=== PATIENT | male | born 1985 | race Hispanic/Latino ===

== ENCOUNTER 2018-01-20 21:07 | Emergency (ER) | payer SELFPAY ==
[2018-01-20 21:21] VITALS: BP 151/82
[2018-01-20] MEDS ORDERED: MOTRIN ONE (21:29)
[2018-01-20] MEDS ORDERED: MOTRIN PO ONE (21:30)
--- NOTE | 2018-01-20 22:22 | XRay Report ---
FINAL REPORT PROCEDURE: XR SHOULDER 2+V RT TECHNIQUE: Right shoulder radiographs including AP views in internal and external rotation and abduction. CPT 72244 HISTORY: pain r/t injury COMPARISON: No prior studies are available for comparison. FINDINGS: Fracture (s) and/or Dislocation(s): None . Joint space(s): Normal . Soft tissues: Normal . Bone mineralization: Normal . Foreign bodies: None . IMPRESSION: Normal Examination
--- NOTE | 2018-01-20 23:27 | Emergency Department Report ---
ED Upper Extremity Inj HPI - General Chief Complaint: Extremity Injury, Upper Stated Complaint: SHOULDER PAIN Time Seen by Provider: 01/20/18 23:10 Source: patient Mode of arrival: Ambulatory Limitations: No Limitations - History of Present Illness Initial Comments: 32-year-old male comes in reporting that his right shoulder popped out why he was arresting a suspect. 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 Patient reports that he has had a history of right shoulder injury with dislocation in high school and periodically once a year that he will have a right shoulder dislocation Complaint: Injury to:: right -: This afternoon Other Extremity Injury: Shoulder: Right (popped out of socket) Other Injuries: none Handedness: right Place: work Severity scale (0 -10): 7 Improves With: medication Worsens With: movement of extremity Context: fall Associated Symptoms: denies other symptoms - Related Data Previous Rx's Medication Instructions Recorded Last Taken Type Ibuprofen [Motrin 800 MG tab] 800 mg PO Q8HR PRN #30 tablet 01/20/18 Unknown Rx Allergies Allergy/AdvReac Type Severity Reaction Status Date / Time No Known Allergies Allergy Unverified 01/20/18 21:21 ED Review of Systems ROS: Stated complaint: SHOULDER PAIN Other details as noted in HPI Comment: All other systems reviewed and negative Musculoskeletal: arthralgia (right shoulder pain) ED Past Medical Hx - Past Medical History Additional medical history: crohns disease, recurrent right shoulder injury with dislocation - Surgical History Past Surgical History?: No - Social History Smoking Status: Never Smoker Substance Use Type: None - Medications Home Medications: Home Medications Medication Instructions Recorded Confirmed Last Taken Type Ibuprofen [Motrin 800 MG tab] 800 mg PO Q8HR PRN #30 tablet 01/20/18 Unknown Rx ED Physical Exam - General Limitations: No Limitations General appearance: alert, in no apparent distress - Head Head exam: Present: atraumatic, normocephalic - Eye Eye exam: Present: EOMI - ENT ENT exam: Present: mucous membranes moist - Expanded Upper Extremity Exam Right Shoulder Exam: Present: full ROM, tenderness, tenderness over AC joint. Absent : swelling Upper Arm exam: Present: normal inspection, full ROM. Absent: tenderness Elbow exam: Present: normal inspection, full ROM. Absent: tenderness, swelling Forearm Wrist exam: Present: normal inspection, full ROM. Absent: tenderness, swelling Vascular: Present: vascular compromise - Neurological Exam Neurological exam: Present: alert, oriented X3 - Psychiatric Psychiatric exam: Present: normal affect, normal mood - Skin Skin exam: Present: warm, dry, intact, normal color. Absent: rash ED Course Vital Signs 01/20/18 21:16 Temperature 98.7 F Pulse Rate 102 H Respiratory 18 Rate Blood Pressure 151/82 O2 Sat by Pulse 95 Oximetry ED Medical Decision Making - Radiology Data Radiology results: report reviewed FINAL REPORT PROCEDURE: XR SHOULDER 2+V RT TECHNIQUE: Right shoulder radiographs including AP views in internal and external rotation and abduction. CPT 80726 HISTORY: pain r/t injury COMPARISON: No prior studies are available for comparison. FINDINGS: Fracture (s) and/or Dislocation(s): None . Joint space(s): Normal . Soft tissues: Normal . Bone mineralization: Normal . Foreign bodies: None . IMPRESSION: Normal Examination Transcribed By: [facility] [place] Dictated By: CHRISTOPHER LEBLANC Electronically Authenticated By: CHRISTOPHER LEBLANC Signed Date/Time: 01/20/182221 DD/ 21 - Medical Decision Making Patient has been evaluated by this provider fast track. Patient was given ibuprofen 800 mg for pain management. X-ray of right shoulder shows normal examination. Discussed the patient to follow up with orthopedist as he may need to have physical therapy to help strengthen his shoulder muscles to prevent reoccurring dislocations. We'll discharge patient on ibuprofen 800 mg every 8 hours when necessary. I recommend placing ice on the shoulder to also help with pain. Discussed the patient to leave it on for no longer than 20 minutes at a time. Also discussed the patient that he needs to rest the shoulder as those muscles are irritated. Patient verbalize understanding. Critical care attestation.: If time is entered above; I have spent that time in minutes in the direct care of this critically ill patient, excluding procedure time. ED Disposition Clinical Impression: History of closed dislocation of shoulder Right shoulder injury Qualifiers: Encounter type: initial encounter Qualified Code(s): S49.91XA - Unspecified injury of right shoulder and upper arm, initial encounter Disposition: DC-01 TO HOME OR SELFCARE Is pt being admited?: No Does the pt Need Aspirin: No Condition: Stable Instructions: Shoulder Dislocation (ED), Shoulder Sprain (ED) Additional Instructions: Please take pain medication on a scheduled basis for the next 2 days and then when necessary. I recommended resting the shoulder as much as possible to allow those ligaments and muscles to improve from the inflammation due to the mechanism of action. I recommend following up with orthopedist to consider possible physical therapy to strengthen the muscles of the shoulder. Prescriptions: Ibuprofen [Motrin 800 MG tab] 800 mg PO Q8HR PRN #30 tablet PRN Reason: Pain , Severe (7-10) Referrals: HENOK SAAVEDRA MD [Staff Physician] - 3-5 Days ANIA MOORE MD [Staff Physician] - 3-5 Days [facility] [Provider Group] - 3-5 Days Forms: Work/School Release Form(ED), Accompanied Note
== END 2018-01-20 23:40 | disposition home or self-care (01) ==
LOC: ED 21:07
DX: S49.91XA Unspecified injury of right shoulder and upper arm, initial encounter (principal); K50.90 Crohn's disease, unspecified, without complications; W19.XXXA Unspecified fall, initial encounter; Y93.89 Activity, other specified; Y99.0 Civilian activity done for income or pay; Y92.69 Other specified industrial and construction area as the place of occurrence of the external cause
CPT/HCPCS: 99283